=== PATIENT | male | born 1940 | race Caucasian/White ===

== ENCOUNTER 2019-07-04 07:49 | Day surgery (SDC) | payer MEDICARE, OTHER ==
[2019-07-04] VITALS (9 sets, daily range): BP systolic 104–127; BP diastolic 63–68
[~2019-07-04] VITALS: Ht 180.3 cm; Wt 86.0 kg
[2019-07-04] MEDS ORDERED: diphenhydrAMINE 25mg capsule PO PRN (08:15)
[2019-07-04] MEDS ORDERED: normal saline 1,000 ML IV SCH (08:15)
[2019-07-04] MEDS ORDERED: LEVO75TA7 PO (08:31)
[2019-07-04] MEDS ORDERED: ASCO1TAB39 PO (08:31)
[2019-07-04] MEDS ORDERED: UBID300C PO (08:31)
[2019-07-04] MEDS ORDERED: SAW160CA3 PO (08:31)
[2019-07-04] MEDS ORDERED: FERR325T28 PO (08:31)
[2019-07-04] MEDS ORDERED: LIOT25TA12 PO (08:31)
[2019-07-04] MEDS ORDERED: TERA1CAP4 PO (08:31)
[2019-07-04] MEDS ORDERED: CHOL400T57 CORPAK (08:31)
[2019-07-04] MEDS ORDERED: NIAC1CAP PO (08:31)
[2019-07-04] MEDS ORDERED: PRAS50CA2 PO (08:31)
[2019-07-04] MEDS ORDERED: ATOR20TA PO (08:31)
[2019-07-04] MEDS ORDERED: LISI10TA4 PO (08:31)
[2019-07-04] MEDS ORDERED: PREG25PO MC (08:31)
[2019-07-04] MEDS ORDERED: OMEG1CAP13 PO (08:31)
[2019-07-04 08:38] LABS: BASOPHILS # (AUTO) 0.1 X10'3 (0-0.2); BASOPHILS % (AUTO) 1.2 % (0-1); EOSINOPHILS # (AUTO) 0.2 X10'3 (0-0.9); EOSINOPHILS % (AUTO) 2.9 % (0-6); HEMOGLOBIN 12.8 g/dl (14.0-17.9); LYMPHOCYTES # (AUTO) 1.2 X10'3 (1.1-4.8); LYMPHOCYTES % (AUTO) 21.6 % (21-51); MEAN CORPUSCULAR HEMOGLOBIN 33.5 PG (27.0-31.0); MEAN CORPUSCULAR HGB CONC 34.5 g/dL (33.0-36.5); MEAN PLATELET VOLUME 8.2 FL (7.4-10.4); MONOCYTES # (AUTO) 0.5 X10'3 (0-0.9); NEUTROPHILS # (AUTO) 3.6 X10'3 (1.8-7.7); NEUTROPHILS % (AUTO) 65.3 % (42-75); PLATELET COUNT 145 X10'3 (140-440); RED BLOOD COUNT 3.82 X10'6 (4.70-6.10); RED CELL DISTRIBUTION WIDTH 12.1 % (11.5-14.5); WHITE BLOOD COUNT 5.6 X10'3 (4.5-11.0)
[2019-07-04 08:48] LABS: ALBUMIN 3.9 G/DL (3.4-5.0); ANION GAP 12 (8-16); BLOOD UREA NITROGEN 38 MG/DL (7-18); BUN/CREATININE RATIO 21.7 (5.4-32.0); CALCIUM 8.7 MG/DL (8.5-10.1); CHLORIDE 106 MMOL/L (99-107); CREATININE 1.75 MG/DL (0.60-1.10); GLUCOSE 100 MG/DL (70-104); MAGNESIUM 2.4 MG/DL (1.5-2.4); POTASSIUM 4.9 MMOL/L (3.5-5.1); SODIUM 143 MMOL/L (135-145); eGFR 38 ML/MIN
[2019-07-04] MEDS ORDERED: midazolam 2 mg/2 ml injection ONE ×3 (09:09→10:14)
[2019-07-04] MEDS ORDERED: fentaNYL/PF 50MCG/1 ML 2ML syringe ONE (09:09)
[2019-07-04] MEDS ORDERED: iohexol 350MG/ML 100ml bottle IV ONE (09:09)
[2019-07-04] MEDS ORDERED: LIDOcaine 1% (10mg/ml)w/preservative injection 20ml MDV ONE (09:09)
[2019-07-04] MEDS ORDERED: iohexol 350 MG/ML 50ML vial IV ONE (09:09)
[2019-07-04] MEDS ORDERED: heparin 1,000unit/ml 10ml vial 10 ML ONE (10:17)
[2019-07-04] MEDS ORDERED: normal saline 1000ml 1,000 ML IV SCH (11:30)
[2019-07-04] MEDS ORDERED: HYDROcodone/acetaminophen 5mg/325mg tablet PO PRN (11:30)
== END 2019-07-04 14:00 | disposition home or self-care (01) ==
LOC: SSTAY O 07:49
PROVIDERS: ATTEND Internal Medicine Cardiovascular Disease
DX: I25.10 Atherosclerotic heart disease of native coronary artery without angina pectoris (principal); I35.0 Nonrheumatic aortic (valve) stenosis; I10 Essential (primary) hypertension; K21.9 Gastro-esophageal reflux disease without esophagitis; G47.33 Obstructive sleep apnea (adult) (pediatric); Z98.890 Other specified postprocedural states; Z72.89 Other problems related to lifestyle; Z79.899 Other long term (current) drug therapy
CPT/HCPCS: 36415; 80048; 83735; 85025; 85610; 93005; 93460; 99152; 99153; C1769; C1894; J1644; J2001; J2250; J3010; J7030; Q0163; Q9967; A4620; A6258; C1760

== ENCOUNTER 2019-07-21 14:35 | Outpatient (CLI) | payer MEDICARE, OTHER ==
[~2019-07-21 14:35] MED LIST: ASCO1TAB39 PO; ATOR20TA PO; CHOL400T57 CORPAK; FERR325T28 PO; LEVO75TA7 PO; LIOT25TA12 PO; LISI10TA4 PO; NIAC1CAP PO; OMEG1CAP13 PO; PRAS50CA2 PO; PREG25PO MC; SAW160CA3 PO; TERA1CAP4 PO; UBID300C PO
== END 2019-07-21 23:59 | disposition home or self-care (01) ==
LOC: CARD DIAG 14:35
PROVIDERS: ATTEND Internal Medicine Cardiovascular Disease
DX: I08.0 Rheumatic disorders of both mitral and aortic valves (principal); I10 Essential (primary) hypertension
CPT/HCPCS: 93308

== ENCOUNTER 2020-09-20 08:58 | Day surgery (SDC) | payer MEDICARE, OTHER ==
[2020-09-20] VITALS (9 sets, daily range): BP systolic 98–112; BP diastolic 53–67
[~2020-09-20] VITALS: Ht 180.3 cm; Wt 88.5 kg
[~2020-09-20 08:58] MED LIST changes: -CHOL400T57 CORPAK; +CHOL400T57 PO; -PREG25PO MC; +PREG25PO PO
[2020-09-20] MEDS ORDERED: diphenhydrAMINE 25mg capsule PO PRN (09:35)
[2020-09-20] MEDS ORDERED: normal saline 1,000 ML IV SCH (09:35)
[2020-09-20 09:55] LABS: BASOPHILS % (AUTO) 0.8 % (0-1); EOSINOPHILS # (AUTO) 0.2 X10'3 (0-0.9); EOSINOPHILS % (AUTO) 3.3 % (0-6); HEMATOCRIT 34.2 % (42.0-52.0); HEMOGLOBIN 11.5 g/dl (14.0-17.9); LYMPHOCYTES % (AUTO) 18.4 % (21-51); MEAN CORPUSCULAR HEMOGLOBIN 33.5 PG (27.0-31.0); MEAN CORPUSCULAR HGB CONC 33.6 g/dL (33.0-36.5); MEAN CORPUSCULAR VOLUME 99.7 FL (78-98); MEAN PLATELET VOLUME 8.4 FL (7.4-10.4); MONOCYTES # (AUTO) 0.5 X10'3 (0-0.9); MONOCYTES % (AUTO) 9.2 % (2-12); NEUTROPHILS # (AUTO) 3.7 X10'3 (1.8-7.7); NEUTROPHILS % (AUTO) 68.3 % (42-75); PLATELET COUNT 127 X10'3 (140-440); RED BLOOD COUNT 3.43 X10'6 (4.70-6.10); RED CELL DISTRIBUTION WIDTH 11.9 % (11.5-14.5); WHITE BLOOD COUNT 5.4 X10'3 (4.5-11.0)
[2020-09-20 10:03] LABS: ALBUMIN 3.7 G/DL (3.4-5.0); ANION GAP 8 (8-16); BLOOD UREA NITROGEN 41 MG/DL (7-18); BUN/CREATININE RATIO 21.2 (5.4-32.0); CALCIUM 8.4 MG/DL (8.5-10.1); CHLORIDE 109 MMOL/L (99-107); CREATININE 1.93 MG/DL (0.60-1.10); GLUCOSE 100 MG/DL (70-104); POTASSIUM 5.2 MMOL/L (3.5-5.1); SODIUM 142 MMOL/L (135-145); TOTAL CARBON DIOXIDE 24.6 MMOL/L (24-32); eGFR 34 ML/MIN
[2020-09-20] MEDS ORDERED: MAGN100T5 PO (10:14)
[2020-09-20] MEDS ORDERED: iohexol 350 MG/ML 50ML vial IV ONE ×2 (11:32→12:41)
[2020-09-20] MEDS ORDERED: fentaNYL/PF 50MCG/1 ML 2ML syringe ONE (11:32)
[2020-09-20] MEDS ORDERED: midazolam 2 mg/2 ml injection ONE ×4 (11:32→12:26)
[2020-09-20] MEDS ORDERED: LIDOcaine 1% (10mg/ml)w/preservative injection 20ml MDV ONE (11:32)
[2020-09-20] MEDS ORDERED: heparin 1,000unit/ml 10ml vial 10 ML ONE (11:32)
[2020-09-20] MEDS ORDERED: iohexol 350MG/ML 100ml bottle IV ONE (11:32)
[2020-09-20] MEDS ORDERED: HYDROcodone/acetaminophen 5mg/325mg tablet PO PRN (13:40)
[2020-09-20] MEDS ORDERED: ondansetron/PF 4mg/2ml inj IV PRN (13:40)
[2020-09-20] MEDS ORDERED: HYDROcodone/acetaminophen 10/325mg tab PO PRN (13:40)
[2020-09-20] MEDS ORDERED: proCHLORperazine 10 MG/2 ml inj IV PRN (13:40)
[2020-09-20] MEDS ORDERED: OXAZEpam 15mg capsule PO PRN (13:40)
== END 2020-09-20 16:30 | disposition home or self-care (01) ==
LOC: SSTAY O 08:58
PROVIDERS: ATTEND Internal Medicine Cardiovascular Disease
DX: I35.0 Nonrheumatic aortic (valve) stenosis (principal); I25.10 Atherosclerotic heart disease of native coronary artery without angina pectoris; G47.33 Obstructive sleep apnea (adult) (pediatric); I12.9 Hypertensive chronic kidney disease with stage 1 through stage 4 chronic kidney disease, or unspecified chronic kidney disease; N18.4 Chronic kidney disease, stage 4 (severe); E78.5 Hyperlipidemia, unspecified; K21.9 Gastro-esophageal reflux disease without esophagitis; G47.30 Sleep apnea, unspecified; Z79.899 Other long term (current) drug therapy; Z87.442 Personal history of urinary calculi; Z98.890 Other specified postprocedural states; Z72.89 Other problems related to lifestyle; Z82.49 Family history of ischemic heart disease and other diseases of the circulatory system
CPT/HCPCS: 36415; 80048; 83735; 85025; 85610; 93005; 93460; 99152; 99153; C1760; C1769; C1894; J1644; J2001; J2250; J3010; Q9967; A4620; C1751

== ENCOUNTER 2020-10-06 09:07 | Outpatient (CLI) | payer MEDICARE, OTHER ==
[~2020-10-06 09:07] MED LIST changes: +MAGN100T5 PO
[2020-10-06 09:53] LABS: BASOPHILS % (AUTO) 0.7 % (0-1); EOSINOPHILS # (AUTO) 0.3 X10'3 (0-0.9); EOSINOPHILS % (AUTO) 3.9 % (0-6); HEMATOCRIT 35.1 % (42.0-52.0); LYMPHOCYTES % (AUTO) 15.4 % (21-51); MEAN CORPUSCULAR HEMOGLOBIN 33.5 PG (27.0-31.0); MEAN CORPUSCULAR VOLUME 98.4 FL (78-98); MEAN PLATELET VOLUME 8.3 FL (7.4-10.4); MONOCYTES # (AUTO) 0.5 X10'3 (0-0.9); MONOCYTES % (AUTO) 8.3 % (2-12); NEUTROPHILS # (AUTO) 4.5 X10'3 (1.8-7.7); NEUTROPHILS % (AUTO) 71.7 % (42-75); PLATELET COUNT 141 X10'3 (140-440); RED BLOOD COUNT 3.57 X10'6 (4.70-6.10); RED CELL DISTRIBUTION WIDTH 11.8 % (11.5-14.5); WHITE BLOOD COUNT 6.4 X10'3 (4.5-11.0)
[2020-10-06 10:12] LABS: PARTIAL THROMBOPLASTIN TIME 27 SECONDS (22-32)
[2020-10-06 10:16] LABS: ALANINE AMINOTRANSFERASE 25 U/L (12-78); ALBUMIN 3.7 G/DL (3.4-5.0); ALBUMIN/GLOBULIN RATIO 1.1 (1.1-1.5); ALKALINE PHOSPHATASE 45 IU/L (46-116); ANION GAP 9 (8-16); ASPARTATE AMINO TRANSFERASE 24 U/L (10-37); BILIRUBIN,TOTAL 0.4 MG/DL (0.1-1.0); BLOOD UREA NITROGEN 45 MG/DL (7-18); BUN/CREATININE RATIO 24.7 (5.4-32.0); CALCIUM 8.6 MG/DL (8.5-10.1); CHLORIDE 108 MMOL/L (99-107); CREATININE 1.82 MG/DL (0.60-1.10); GLUCOSE 111 MG/DL (70-104); POTASSIUM 5.2 MMOL/L (3.5-5.1); SODIUM 142 MMOL/L (135-145); TOTAL CARBON DIOXIDE 25.1 MMOL/L (24-32); eGFR 36 ML/MIN
== END 2020-10-06 23:59 | disposition home or self-care (01) ==
LOC: VAS 09:07
PROVIDERS: ATTEND Internal Medicine Cardiovascular Disease
DX: I65.23 Occlusion and stenosis of bilateral carotid arteries (principal); I35.0 Nonrheumatic aortic (valve) stenosis; R06.02 Shortness of breath
CPT/HCPCS: 36415; 71046; 71275; 74174; 80053; 85025; 85610; 85730; 93880; 94010; 94727; 94729; Q9967